=== PATIENT | female | born 1965 | race Caucasian/White ===

== ENCOUNTER 2016-11-27 08:20 | Day surgery (SDC) | payer BC ==
[~2016-11-27] VITALS: Ht 165.1 cm; Wt 68.9 kg
--- NOTE | ~2016-11-27 | EGD ---
EGD REPORT [facility] [address] [address] NAME: FELICITY MILLS : 63 STATUS : REG [facility] PAT#: [id number] AGE: 51 ADM/REG DATE : 11/27/16 MR#: [id number] REPORT SERV DATE: 11/27/16 DICTATED BY: JENNIFER DOMINIQUE DATE: 11/27/16 REPORT STATUS : Draft TRANSCRIBED BY: [facility] DATE: 11/27/16 End[facility] Center Patient Name: Felicity Mills Date of : 1965 Attending MD: JENNIFER DOMINIQUE MD Procedure Date No Time: 11/27/2016 Procedure: Colonoscopy Indications: Colon cancer screening in patient at increased risk: Family history of colon polyps, Last colonoscopy: 2008 Referring MD: CHIARA CUEVAS MD Medicines: See the Anesthesia note for documentation of the administered medications Complications: No immediate complications. Procedure: Pre-Anesthesia Assessment: - ASA Grade Assessment: II - A patient with mild systemic disease. After I obtained informed consent, the scope was passed under direct vision. Throughout the procedure, the patient's blood pressure, pulse, and oxygen saturations were monitored continuously. The PCF [id number] was introduced through the anus and advanced to the terminal ileum, with identification of the appendiceal orifice and IC valve. The colonoscopy was performed without difficulty. The patient tolerated the procedure well. The quality of the bowel preparation was adequate. Findings: The perianal and digital rectal examinations were normal. Internal hemorrhoids were found during retroflexion and were small. A sessile polyp was found in the rectum. The polyp was small in size. The polyp was removed with a cold biopsy forceps. Resection and retrieval were complete. Impression: - Internal hemorrhoids. - One small polyp in the rectum. Resected and retrieved. Recommendation: - Patient has a contact number available for emergencies. The signs and symptoms of potential delayed complications were discussed with the patient. Return to normal activities tomorrow. Written discharge instructions were provided to the patient. - Regular diet. - Continue present medications. - Repeat colonoscopy in 5 years for screening purposes. - FOR YOUR BIOPSY RESULTS: Please go to EGD REPORT [address] [address] NAME: FELICITY MILLS : 63 STATUS : REG [facility] PAT#: [id number] AGE: 51 ADM/REG DATE : 11/27/16 MR#: [id number] REPORT SERV DATE: 11/27/16 DICTATED BY: JENNIFER DOMINIQUE DATE: 11/27/16 REPORT STATUS : Draft TRANSCRIBED BY: [employer] DATE: 11/27/16 [email or web address] and register to receive your results via the portal. Your biopsy results will be posted there in about 7 to 10 days. IF you do not see result in 10 days, call office. Procedure Code(s): --- Professional --- 49548, Colonoscopy, flexible, proximal to splenic flexure; with biopsy, single or multiple Diagnosis Code(s): --- Professional --- K64.8, Other hemorrhoids K62.1, Rectal polyp Z12.11, Encounter for screening for malignant neoplasm of colon Z83.71, Family history of colonic polyps CPT copyright 2013 [employer]. All rights reserved. The codes documented in this report are preliminary and upon motor transport inspector review may be revised to meet current compliance requirements. Jennifer Dominique MD JENNIFER DOMINIQUE MD 11/27/2016 9:22 AM This report has been signed electronically. Number of Addenda: 0 Note Initiated On: 11/27/2016 8:59 AM Scope Withdrawal Time 0 hours 6 minutes 39 seconds [id number] [place] [id number]
[~2016-11-27 08:20] MED LIST: PROZ10 PO; SEASONALE PO; ZANTAC150 MG PO; [UNRECOGNIZED DRUG - OTHER] PO
== END 2016-11-27 23:59 | disposition home health service (06) ==
LOC: DMU 08:20
PROVIDERS: Internal Medicine Gastroenterology
PROC: 0DBP8ZX Excision of Rectum, Via Natural or Artificial Opening Endoscopic, Diagnostic (ICD-10-PCS; principal; 2016-11-27 09:30)
DX: Z12.11 Encounter for screening for malignant neoplasm of colon (principal); K62.1 Rectal polyp; K64.8 Other hemorrhoids; F41.9 Anxiety disorder, unspecified; K21.9 Gastro-esophageal reflux disease without esophagitis; Z83.71 Family history of colonic polyps; Z88.5 Allergy status to narcotic agent; Z88.1 Allergy status to other antibiotic agents; Z90.49 Acquired absence of other specified parts of digestive tract; Z79.899 Other long term (current) drug therapy; Z98.890 Other specified postprocedural states
CPT/HCPCS: 84703; 88305